=== PATIENT | male | born 1970 | race African-American/Black ===

== ENCOUNTER 2020-11-26 22:36 | Emergency (ER) | payer BC, OTHER ==
[~2020-11-26] VITALS: Ht 180.3 cm; Wt 86.2 kg
[~2020-11-26 22:36] MED LIST: EPINEPHrine SYRINGE 1 MG/10 ML SYRINGE ONE; SODIUM BICARB ADULT 8.4% 50 MEQ/50 ML DISP.SYRIN. ONE
--- NOTE | 2020-11-26 23:15 | PHYS DOC ---
Past Medical History Past Medical History: High Cholesterol, Hypertension Past Medical History Limited secondary to cardiopulmonary arrest Past Surgical History Limited secondary to cardiopulmonary arrest Smoking Status: Never Smoker Alcohol Use: Occasionally Drug Use: Marijuana Social History Limited secondary to cardiopulmonary arrest General Adult EDM: Chief Complaint: CPR/FULL ARREST HPI: HPI: 50 year old male presents via EMS in cardiopulmonary arrest. EMS reports this was witnessed at approximately 2210 by patient's son. Patient reportedly had been out and had drank some ETOH and smoked some marijuna just prior to returing home. Son reports he "kept falling" and when he "passed out", that the son called 911. EMS reports initial rhythm of asystole. ACLS protocol initiated. EMS utilized mechanical CPR device and intubated patient with a 7.5 cuffed ETT. Prior to arrival to ED, EMS reports patient had received 6 rounds of epinephrine, 2 rounds of lidocaine, 4 mg of Narcan, and was defibrillated x3 at 200 J (for Vfib) without successful return of spontaneous circulation. EMS reports blood sugar 123. History of present illness limited secondary to cardiopulmonary arrest. Review of Systems: Review of Systems: Review of systems limited secondary to cardiopulmonary arrest Physical Exam: PE: Constitutional: Well developed, well nourished, unresponsive HENT: Normocephalic, atraumatic, 7.[address] Eyes: Pupils dilated and nonresponsive, conjunctiva normal, no discharge Neck: Normal range of motion, supple Lungs & Thorax: Breath sounds clear bilaterally but artificial with bag valve mask Abdomen: Soft, no distention Skin: Warm, dry, no erythema, no rash Extremities: No deformity, no edema Neurologic: GCS 3, unresponsive EKG: EKG: [] Radiology/Procedures: Radiology/Procedures: [] Course & Med Decision Making: Course & Med Decision Making Patient presents via EMS in cardiopulmonary arrest. EMS reports this was witnessed at approximately 2210. ACLS protocol initiated by EMS prior to arrival. EMS utilized mechanical CPR device and intubated patient with a 7.5 cuffed ETT. Patient had received 6 rounds of epinephrine, 2 rounds of lidocaine, 4 mg of Narcan, and was defibrillated x3 at 200 J without successful return of spontaneous circulation. EMS reports blood sugar 123. Patient noted to be in asystole upon arrival to the ER. ACLS protocol continued with continuation of mechanical CPR with EMS device. Additional 5 rounds of epinephrine and 1 round of bicarb provided with continuation of asystole. Time of therefore called after confirmation with bedside ultrasound at 2300. Discussed case with Dr. Cali (dining car conductor for patient's PCP- Dr. Mario) who is in agreement with signing certificate. Discussed findings and plan with family, who acknowledge understanding and agreement. Dragon Disclaimer: Dragon Disclaimer: This electronic medical record was generated, in whole or in part, using a voice recognition dictation system. Departure Departure Impression: Primary Impression: Cardiopulmonary arrest Disposition: 20 Condition: Critical Care Time Critical care time was 30 minutes which includes time at bedside, spent in discussion of patient's care with specialists and/or family members, with interpretation of laboratory and/or radiological studies and is exclusive of procedures. DENIZ JORGE DO Nov 26, 2020 23:15
== END 2020-11-27 05:31 ==
LOC: ER 22:36
DX: I46.9 Cardiac arrest, cause unspecified (principal); F12.90 Cannabis use, unspecified, uncomplicated; Z98.890 Other specified postprocedural states
CPT/HCPCS: 31500; 92950; 99291; J0171; J3490